=== PATIENT | male | born 1980 | race African-American/Black ===

== ENCOUNTER 2022-02-23 09:27 | Emergency (ER) | payer SELFPAY ==
[~2022-02-23] VITALS: Ht 182.9 cm; Wt 107.0 kg
[2022-02-23 09:31] VITALS: BP 167/110
[2022-02-23] MEDS ORDERED: HYDR25TA PO (09:35)
[2022-02-23] MEDS ORDERED: ACETAMINOPHEN 325MG TABLET PO STA (10:08)
== END 2022-02-23 11:51 | disposition home or self-care (01) ==
LOC: ER 09:27
DX: G44.209 Tension-type headache, unspecified, not intractable (principal); I10 Essential (primary) hypertension
CPT/HCPCS: 99284